=== PATIENT | female | born 2000 | race Caucasian/White ===

== ENCOUNTER 2023-12-08 10:02 | Emergency (ER) | payer BC ==
[2023-12-08 11:04] LABS: APPEARANCE,URINE CLEAR (CLEAR); BILIRUBIN,URINE NEGATIVE (NEGATIVE); COLOR,URINE YELLOW (YELLOW); GLUCOSE,URINE NEGATIVE (NEGATIVE); KETONES,URINE NEGATIVE (NEGATIVE); LEUKOCYTE ESTERASE,URINE TRACE (NEGATIVE); NITRITE,URINE NEGATIVE (NEGATIVE); OCCULT BLOOD,URINE NEGATIVE (NEGATIVE); PH,URINE 7.5 (5.0-8.0); PROTEIN,URINE NEGATIVE (NEGATIVE); UROBILINOGEN,URINE 0.2 EU/dL (0.2-1.0)
[2023-12-08 11:18] LABS: AMORPHOUS SEDIMENT,URINE MODERATE; BACTERIA,URINE NOT SEEN; EPITHELIAL CELLS,URINE RARE; MUCUS,URINE NOT SEEN; RBC,URINE NOT SEEN (0-5); WBC,URINE NOT SEEN (0-5)
[2023-12-08] MEDS: Ketorolac 15 MG/ML SDV IVPUSH ONE (11:30)
[2023-12-08] MEDS: Sodium Chloride 0.9% 10 ML Syringe FLUSH PRN (11:30)
[2023-12-08 11:34] LABS: BASOPHILS ABSOLUTE AUTO 0.03 K/uL (0.00-0.10); BASOPHILS PERCENT AUTO 0.5 % (0.1-1.3); EOSINOPHILS ABSOLUTE AUTO 0.18 K/uL (0.00-0.40); EOSINOPHILS PERCENT AUTO 2.9 % (0.0-5.4); HEMATOCRIT 39.1 % (34.3-46.0); HEMOGLOBIN 13.5 g/dL (11.2-15.5); IMMATURE GRAN PERCENT AUTO 0.2 % (0.0-0.7); LYMPHOCYTES ABSOLUTE AUTO 2.63 K/uL (0.8-3.3); LYMPHOCYTES PERCENT AUTO 42.8 % (11.4-47.7); MEAN CORPUSCULAR HEMOGLOBIN 29.3 pg (31.6-35.5); MEAN CORPUSCULAR HGB CONC 34.5 g/dL (31.6-35.5); MEAN CORPUSCULAR VOLUME 84.8 fL (81.4-99.0); MONOCYTES ABSOLUTE AUTO 0.38 K/uL (0.20-0.90); MONOCYTES PERCENT AUTO 6.2 % (3.3-12.6); NEUTROPHILS ABSOLUTE AUTO 2.92 K/uL (1.0-7.6); NEUTROPHILS PERCENT AUTO 47.4 % (40.0-78.1); PLATELET COUNT,PLT 322 K/uL (130-375); RED BLOOD CELL COUNT 4.61 M/uL (3.77-5.24); WHITE BLOOD CELL COUNT,WBC 6.2 K/uL (3.2-11.0)
[2023-12-08 11:35] LABS: IMMATURE GRAN ABSOLUTE AUTO 0.01 K/uL (0.00-0.23)
[2023-12-08] MEDS: Sodium Chloride 0.9% 10 ML Syringe FLUSH ONE (11:55)
[2023-12-08] MEDS: Iopamidol 612 MG/ML 100 ML Bottle IV ONE (11:55)
[2023-12-08] MEDS: Sodium Chloride 0.9% 100 ML IV ONE (11:55)
[2023-12-08 12:02] LABS: A/G RATIO 1.1 (1.2-2.2); ALANINE AMINOTRANSFERASE,ALT 33 U/L (12-78); ALBUMIN 4.1 g/dL (3.4-5.0); ALKALINE PHOSPHATASE 75 U/L (46-116); ASPARTATE AMNIOTRANSFERASE,AST 20 U/L (15-37); BILIRUBIN TOTAL 0.4 mg/dL (0.2-1.0); BLOOD UREA NITROGEN,BUN 9 mg/dL (7-18); CALCIUM 9.2 mg/dL (8.5-10.1); CARBON DIOXIDE,CO2 26 mmol/L (21-32); CHLORIDE,CL 104 mmol/L (100-108); CREATININE 0.7 mg/dL (0.6-1.0); EST CRCL DRUG DOSING (CG) 109.78 mL/min; ESTIMATED GFR 126 mL/min (>60); GLUCOSE RANDOM 98 mg/dL (74-106); POTASSIUM,K 4.1 mmol/L (3.6-5.2); PROTEIN TOTAL,TP 7.8 g/dL (6.4-8.2); SODIUM,NA 139 mmol/L (140-148)
[2023-12-08 12:03] LABS: ANION GAP 13.1 mmol/L (5.0-14.0); C-REACTIVE PROTEIN < 0.50 mg/dL (<0.50)
[2023-12-08] MEDS ORDERED: Naloxone 0.4 MG/ML SDV IVPUSH PRN (12:21)
[2023-12-08] MEDS: Ondansetron 4 MG/2 ML SDV IVPUSH ONE (12:28)
[2023-12-08] MEDS: HYDROmorphone 0.5 MG/0.5 ML Syringe IVPUSH ONE (12:28)
== END 2023-12-08 13:44 | disposition home or self-care (01) ==
LOC: JP.ED 10:02
DX: R10.31 Right lower quadrant pain (principal)
CPT/HCPCS: 36415; 74177; 76856; 80053; 81001; 81025; 83605; 85025; 86140; 93976; 96374; 96375; 99284; J1170; J1885; J2405; J3490; Q9967; 99283